=== PATIENT | male | born 1980 | race Caucasian/White ===

== ENCOUNTER 2016-12-20 19:11 | Emergency (ER) | payer OTHER ==
[~2016-12-20 19:11] MED LIST: AMOXICILLIN; IMMODIUM
[2016-12-20 20:34] LABS: BASO % 0.3 % (0-2); EOS % 0.6 % (0-7); HCT-HEMATOCRIT 40.8 % (36.0-53.5); HGB-HEMOGLOBIN 14.8 gm/dl (13.5-17.0); IMMATURE GRANULOCYTES ABSOLUTE 0.03 tho/cmm (0-0.03); IMMATURE GRANULOCYTES PERCENT 0.5 % (0-0.3); LYMPH % 9.1 % (20-45); LYMPH ABSOLUTE COUNT 0.6 tho/cmm (0.8-4.5); MCH (MEAN CORPUSCULAR HGB) 29.7 pg (28.0-32.0); MCHC MEAN CORPUSCULAR HGB CONC 36.3 % (32.0-36.0); MCV (MEAN CELL VOLUME) 81.8 fl (82.0-96.0); MONO % 9.1 % (0-12); MONOCYTE ABSOLUTE COUNT 0.6 tho/cmm (0.0-1.2); NEUTROPHILS % 80.4 % (40-80); PLATELET COUNT 176 tho/cmm (150-450); RED BLOOD COUNT 4.99 mil/cmm (4.40-5.70); RED CELL DISTRIBUTION WIDTH 13.4 % (12.4-16.4); WHITE BLOOD COUNT 6.2 tho/cmm (4.0-10.0)
[2016-12-20 20:49] LABS: ANION GAP 14 mmol/L (0-20); BLOOD UREA NITROGEN 14 mg/dl (6-24); C-REACTIVE PROTEIN 1.3 mg/dl (0-0.9); CALCIUM 8.5 mg/dl (8.5-10.5); CARBON DIOXIDE-VENOUS 24 mmol/L (22-32); CHLORIDE 102 mmol/l (96-110); CREATININE 1.05 mg/dl (0.60-1.30); GLUCOSE 130 mg/dL (70-110); POTASSIUM 4.1 mmol/L (3.7-5.1); SODIUM 136 mmol/L (135-145); eGFR VALUE FOR BLACK >90 mL/Min
[2016-12-21] MEDS ORDERED: FLONASE ALLERG9.9 ML (21:48)
[2016-12-21] MEDS ORDERED: SUDAFED30 M2 PO (21:49)
[2016-12-21] MEDS ORDERED: NORCO 5-325 TA1 EACH PO (21:49)
[2016-12-21] MEDS ORDERED: MEDROL4 M1 (21:50)
[2016-12-22] MEDS ORDERED: ALLERGY SHOTS (04:35)
[2016-12-22] MEDS ORDERED: ZYRTEC10 M7 PO (04:49)
[2016-12-22] MEDS ORDERED: IMITREX100 M2 PO (15:38)
== END 2016-12-20 22:13 ==
LOC: EDMED 19:11
PROVIDERS: Nurse Practitioner Family
DX: R51 Headache (principal); R11.0 Nausea
CPT/HCPCS: J0780; J1200; J2060; J7030